=== PATIENT | female | born 1940 | race Hispanic/Latino ===

== ENCOUNTER 2023-08-20 19:43 | Inpatient (IN) | payer MEDICARE, OTHER ==
[~2023-08-20 19:43] MED LIST: Iopamidol 370 76% 100 ML VIAL ONE
[2023-08-20 20:51] LABS: #Monocytes 0.7 thou/uL (0.11-0.59); #Neutrophils 5.5 thou/uL (1.40-6.50); %Basophils 0.3 % (0.0-1.0); %Lymphocytes 12.1 % (21.0-51.0); %Monocytes 9.7 % (0.0-10.0); %Neutrophils 77.6 % (42.0-75.0); Hematocrit 34.7 % (36.0-47.0); Hemoglobin 10.8 g/dL (12.0-16.0); Mean Corpuscular HGB CONC 31.1 g/dL (32.0-36.0); Mean Corpuscular Hemoglobin 32.5 pg (27.0-31.0); Mean Corpuscular Volume 104.5 fl (78.0-98.0); Mean Platelet Volume 10.9 fL (7.4-10.4); Platelet Count 167 10x3/uL (130-400); RBC Distribution Width 14.2 % (11.5-14.5); Red Blood Cell (RBC) Count 3.32 mill/uL (4.20-5.40)
[2023-08-20 21:13] LABS: ALT (SGPT) 7 U/L (8-55); AST (SGOT) 18 U/L (5-34); Alkaline Phosphatase 110 U/L (40-110); Anion Gap 16 mmol/L (10-20); BUN (Urea Nitrogen) 16 mg/dL (9.8-20.1); Bilirubin, Total 0.5 mg/dL (0.2-1.2); Calc. Creatinine Clearance 0 mL/min (70-130); Calcium 9.6 mg/dL (7.8-10.44); Carbon Dioxide 18 mmol/L (23-31); Chloride 108 mmol/L (98-107); Estimated GFR 75; Globulin 3.2 g/dL (2.4-3.5); Glucose 128 mg/dL (83-110); Potassium 3.7 mmol/L (3.5-5.1); Protein, Total 7.2 g/dL (5.8-8.1); Sodium 138 mmol/L (136-145)
[2023-08-20] MEDS ORDERED: Acetaminophen 500 MG TAB ONE (21:32)
[2023-08-20 21:56] LABS: INR-International Normal Ratio 1.1; PTT 31.1 sec (22.9-36.1); Prothrombin Time 14.7 sec (12.0-14.7)
[2023-08-20 22:53] LABS: Bacteria/HPF None Seen HPF (None Seen); Bilirubin Negative (Negative); Blood, Urine Negative (Negative); CAUTI Indications for Culture Alt mental st,lethar; Clarity Clear (Clear); Glucose, Urine (Dipstick) Normal (Negative); Ketone, Urine Negative (Negative); Leukocyte Negative Leu/uL (Negative); Nitrite Negative (Negative); Protein, Urine (Dipstick) Negative (Neg-Trace); RBC/HPF 0-3 HPF (0-3); Specific Gravity, Urine 1.018 (1.002-1.036); Squamous Epithelial None Seen HPF (0-3); Urobilinogen Normal mg/dL (Less than 2); WBC/HPF None Seen HPF (0-3)
[2023-08-20 23:04] LABS: Urine Culture Reflex No No
[2023-08-20 23:57] LABS: SARS-CoV-2 NAA Rapid Test Not Detected (NotDetected)
[2023-08-21] MEDS ORDERED: Aspirin Chewable 81 MG TAB ONE ×2 (00:59→08:37)
[2023-08-21] MEDS ORDERED: Ondansetron ODT 4 MG TAB SL PRN (01:00)
[2023-08-21] MEDS ORDERED: Acetaminophen 325 MG TAB PO PRN ×2 (01:00→01:43)
[2023-08-21] MEDS ORDERED: Ondansetron PF 4 MG/2 ML Vial IVP PRN ×2 (01:00→01:43)
[2023-08-21 01:17] VITALS: BMI 22.3
[2023-08-21] MEDS ORDERED: Labetalol HCl 100 MG/20 ML VIAL SLOW IVP PRN (01:43)
[2023-08-21] MEDS ORDERED: Ondansetron ODT 4 MG TAB PO PRN (01:43)
[2023-08-21 02:32] LABS: Lactic Acid 1.6 mmol/L (0.5-2.2)
[2023-08-21 03:02] LABS: #Monocytes 0.6 thou/uL (0.11-0.59); #Neutrophils 4.4 thou/uL (1.40-6.50); %Basophils 0.2 % (0.0-1.0); %Eosinophils 0.2 % (0.0-10.0); %Lymphocytes 14.2 % (21.0-51.0); %Monocytes 9.4 % (0.0-10.0); %Neutrophils 75.8 % (42.0-75.0); Hematocrit 31.3 % (36.0-47.0); Mean Corpuscular HGB CONC 31.9 g/dL (32.0-36.0); Mean Corpuscular Hemoglobin 31.3 pg (27.0-31.0); Mean Platelet Volume 10.5 fL (7.4-10.4); Platelet Count 174 10x3/uL (130-400); Red Blood Cell (RBC) Count 3.19 mill/uL (4.20-5.40); White Blood Cell (WBC) Count 5.9 10x3/uL (4.8-10.8)
[2023-08-21 03:03] LABS: Mean Corpuscular Volume 98.1 fl (78.0-98.0)
[2023-08-21 04:20] LABS: Hemoglobin A1c 5.2 % (4.0-6.0)
[2023-08-21 04:22] LABS: Anion Gap 15 mmol/L (10-20); BUN (Urea Nitrogen) 13 mg/dL (9.8-20.1); Calc. Creatinine Clearance 43 mL/min (70-130); Calcium 9.1 mg/dL (7.8-10.44); Carbon Dioxide 21 mmol/L (23-31); Cardiac Risk 2.8 (Less than 4.5); Chloride 109 mmol/L (98-107); Cholesterol 130 mg/dl (< 200 Desired); Estimated GFR 79; Glucose 114 mg/dL (83-110); HDL Cholesterol 47 mg/dL (>60 Neg Risk); LDL Cholesterol, Calculated 70 mg/dL; Magnesium 1.6 mg/dL (1.6-2.6); Potassium 3.6 mmol/L (3.5-5.1); Sodium 141 mmol/L (136-145); Triglycerides 65 mg/dL (Less than 150)
[2023-08-21] MEDS ORDERED: Levothyroxine Sodium 125 MCG TAB ONE (06:18)
[2023-08-21] MEDS: Levothyroxine Sodium 125 MCG TAB PO SCH (06:24)
[2023-08-21] MEDS ORDERED: Fluconazole 100 MG TAB ONE (08:43)
[2023-08-21] MEDS: Fluconazole 100 MG TAB PO SCH (08:55)
[2023-08-21] MEDS: Aspirin 81 mg Enteric Coated Tablet PO SCH (08:55)
[2023-08-21] MEDS: Indomethacin 25 mg Capsule PO SCH (17:53)
[2023-08-21] MEDS: Atorvastatin Calcium 40 MG TAB PO SCH (22:01)
[2023-08-22] MEDS: Levothyroxine Sodium 112 MCG TAB PO SCH (07:27)
[2023-08-22] MEDS: FLU VACC QS2023(65UP)/MF59C/PF 60 MCG/0.5 ML SYRINGE IM ONE (09:53)
[2023-08-22 15:53] VITALS: BP 146/76; TEMP 98
[2023-08-22] MEDS ORDERED: Magnesium 2 GM/50 ML(in water) 2 GM in Premix 1 BAG IVPB SCH (16:30)
[2023-08-22] MEDS: Potassium Bicarbonate/Cit Ac 20 MEQ TAB PO SCH (17:33)
== END 2023-08-22 19:17 | disposition home or self-care (01) | DRG 69 ==
LOC: ERS 19:43 → ERHOLD 08-21 00:43 → 2SE 08-21 13:36 → OBSVTOIN 08-22 11:49
PROVIDERS: ADMIT Internal Medicine; ATTEND Internal Medicine
DX: G45.9 Transient cerebral ischemic attack, unspecified (principal); E87.20 Acidosis, unspecified; E86.0 Dehydration; I12.9 Hypertensive chronic kidney disease with stage 1 through stage 4 chronic kidney disease, or unspecified chronic kidney disease; N18.2 Chronic kidney disease, stage 2 (mild); E78.5 Hyperlipidemia, unspecified; D63.1 Anemia in chronic kidney disease; Z66 Do not resuscitate; Z11.52 Encounter for screening for COVID-19; Z79.82 Long term (current) use of aspirin; Z79.899 Other long term (current) drug therapy; E03.9 Hypothyroidism, unspecified
CPT/HCPCS: 36415; 36416; 70450; 70496; 70498; 70551; 71045; 80048; 80053; 80061; 81001; 82607; 83036; 83605; 83735; 84443; 85025; 85610; 85730; 87040; 90471; 90694; 93005; 93306; 96372; G0008; G0378; Q9967

== ENCOUNTER 2023-12-12 12:02 | Emergency (ER) | payer MEDICARE, OTHER ==
[2023-12-12 14:01] LABS: #Basophils Less than 0.03 10x3/uL (0.0-0.2); %Basophils 0.1 % (0.0-1.0); %Eosinophils 1.1 % (0.0-10.0); %Lymphocytes 13.2 % (21.0-51.0); %Monocytes 4.1 % (0.0-10.0); %Neutrophils 81.2 % (42.0-75.0); Hematocrit 31.5 % (36.0-47.0); Mean Corpuscular HGB CONC 31.7 g/dL (32.0-36.0); Mean Corpuscular Hemoglobin 27.8 pg (27.0-31.0); Mean Corpuscular Volume 87.5 fL (78.0-98.0); Mean Platelet Volume 9.6 fL (7.4-10.4); Platelet Count 250 10x3/uL (130-400); RBC Distribution Width 15.4 % (11.5-14.5)
[2023-12-12 14:22] LABS: ALT (SGPT) 15 U/L (8-55); AST (SGOT) 26 U/L (5-34); Albumin 3.5 g/dL (3.4-4.8); Alkaline Phosphatase 171 U/L (40-110); Anion Gap 16 mmol/L (10-20); BUN (Urea Nitrogen) 20 mg/dL (9.8-20.1); Bilirubin, Total 0.4 mg/dL (0.2-1.2); Calc. Creatinine Clearance 0 mL/min (70-130); Calcium 10.1 mg/dL (7.8-10.44); Carbon Dioxide 18 mmol/L (23-31); Chloride 109 mmol/L (98-107); Estimated GFR 66; Globulin 4.2 g/dL (2.4-3.5); Glucose 78 mg/dL (83-110); Lipase 30 U/L (8-78); Magnesium 1.7 mg/dL (1.6-2.6); Potassium 4.6 mmol/L (3.5-5.1); Protein, Total 7.7 g/dL (5.8-8.1); Sodium 138 mmol/L (136-145); Troponin I Less than 0.010 ng/mL (< 0.028)
[2023-12-12 16:16] LABS: Bacteria/HPF None Seen HPF (None Seen); Bilirubin Negative (Negative); Blood, Urine Negative (Negative); CAUTI Indications for Culture Immunosuppressed; Clarity Clear (Clear); Glucose, Urine (Dipstick) Normal (Negative); Ketone, Urine Negative (Negative); Leukocyte Negative Leu/uL (Negative); Nitrite Negative (Negative); Protein, Urine (Dipstick) Negative (Neg-Trace); RBC/HPF None Seen HPF (0-3); Specific Gravity, Urine 1.004 (1.002-1.036); Squamous Epithelial None Seen HPF (0-3); Urobilinogen Normal mg/dL (Less than 2); WBC/HPF 0-3 HPF (0-3)
[2023-12-12 16:39] LABS: Urine Culture Reflex Yes Yes
== END 2023-12-12 16:56 | disposition home or self-care (01) ==
LOC: ERS 12:02
DX: R19.7 Diarrhea, unspecified (principal); I10 Essential (primary) hypertension
CPT/HCPCS: 36415; 36416; 80053; 81001; 83690; 83735; 84484; 85025; 87086; 93005

== ENCOUNTER 2024-04-16 12:57 | Emergency (ER) | payer OTHER ==
[2024-04-16 13:29] LABS: #Basophils Less than 0.03 10x3/uL (0.0-0.2); #Eosinophils Less than 0.03 10x3/uL (0.0-0.7); %Basophils 0.5 % (0.0-1.0); %Eosinophils 0.5 % (0.0-10.0); %Lymphocytes 9.7 % (21.0-51.0); %Monocytes 8.8 % (0.0-10.0); Hematocrit 25.3 % (36.0-47.0); Hemoglobin 8.2 g/dL (12.0-16.0); Mean Corpuscular HGB CONC 32.4 g/dL (32.0-36.0); Mean Corpuscular Hemoglobin 30.6 pg (27.0-31.0); Mean Corpuscular Volume 94.4 fL (78.0-98.0); Mean Platelet Volume 9.2 fL (7.4-10.4); Platelet Count 210 10x3/uL (130-400); RBC Distribution Width 13.2 % (11.5-14.5); Red Blood Cell (RBC) Count 2.68 mill/uL (4.20-5.40)
[2024-04-16] MEDS ORDERED: Metoclopramide HCl 10 MG (2 mL) VIAL ONE (13:34)
[2024-04-16] MEDS ORDERED: diphenhydrAMINE 50 MG/ML VIAL ONE (13:34)
[2024-04-16] MEDS ORDERED: Acetaminophen 500 MG TAB ONE (13:34)
[2024-04-16] MEDS ORDERED: Ketorolac Tromethamine 30 MG (1 mL) VIAL ONE (13:34)
[2024-04-16 13:54] LABS: ALT (SGPT) 10 U/L (8-55); AST (SGOT) 16 U/L (5-34); Albumin 3.6 g/dL (3.4-4.8); Alkaline Phosphatase 151 U/L (40-110); Anion Gap 14 mmol/L (10-20); BUN (Urea Nitrogen) 24 mg/dL (9.8-20.1); Bilirubin, Total 0.3 mg/dL (0.2-1.2); Calc. Creatinine Clearance 0 mL/min (70-130); Calcium 9.6 mg/dL (7.8-10.44); Carbon Dioxide 22 mmol/L (23-31); Chloride 102 mmol/L (98-107); Estimated GFR 52; Globulin 4.2 g/dL (2.4-3.5); Glucose 123 mg/dL (83-110); Protein, Total 7.8 g/dL (5.8-8.1); Sodium 133 mmol/L (136-145); Troponin I Less than 0.010 ng/mL (< 0.028)
[2024-04-16 15:51] LABS: Bacteria/HPF None Seen HPF (None Seen); Bilirubin Negative (Negative); Blood, Urine Negative (Negative); CAUTI Indications for Culture Acute Hematuria; Clarity Clear (Clear); Glucose, Urine (Dipstick) Normal (Negative); Ketone, Urine Negative (Negative); Leukocyte Negative Leu/uL (Negative); Nitrite Negative (Negative); Protein, Urine (Dipstick) Negative (Neg-Trace); RBC/HPF 0-3 HPF (0-3); Specific Gravity, Urine 1.002 (1.002-1.036); Squamous Epithelial None Seen HPF (0-3); Urobilinogen Normal mg/dL (Less than 2); WBC/HPF 0-3 HPF (0-3)
[2024-04-16 15:54] LABS: Urine Culture Reflex No No
== END 2024-04-16 18:50 | disposition home or self-care (01) ==
LOC: ERS 12:57
DX: R51.9 Headache, unspecified (principal); I10 Essential (primary) hypertension
CPT/HCPCS: 70450; 71045; 80053; 81001; 84484; 85025; 93005; 93970; 96374; 96375; 99284; J1200; J1885; J2765